=== PATIENT | female | born 1965 | race Caucasian/White ===

== ENCOUNTER 2019-09-08 07:31 | Day surgery (SDC) | payer BC ==
[~2019-09-08 07:31] MED LIST: LACTATED RINGERS 1000 ML IV PRN; PROPOFOL INJ 200 MG/20 ML VIAL IV ONE
--- NOTE | 2019-09-08 09:12 | Operative Report ---
Operative Report DATE OF SURGERY: 09/08/19 Operative Report: The risks benefits and alternatives of the procedure explained to the patient in detail and informed consent is obtained.A GIF Olympus video scope was inserted into the patient's mouth and hypopharynx ,the esophagus is identified intubated and insufflated, the scope was then advanced through the esophagus stomach and duodenum, retroflexion maneuver is done ,the esophagus stomach and first and second portions of the duodenum examined PREOPERATIVE DIAGNOSIS: Abdominal pain POSTOPERATIVE DIAGNOSIS: Gastric erosions status post biopsy, mild duodenitis OPERATION: EGD with biopsy SURGEON: RACHEL KRUEGER ANESTHESIA: LMAC TISSUE REMOVED OR ALTERED: As noted above. COMPLICATIONS: None. ESTIMATED BLOOD LOSS: None. INTRAOPERATIVE FINDINGS: As noted above. PROCEDURE: Patient tolerated the procedure well. No immediate postprocedure complications are noted. Patient is discharged in good condition. Discharge date 09/08/2019. Discharge diet: Regular. Discharge activity: Regular. 2 to 3-week follow-up to discuss findings. Patient is instructed to call the office or proceed to the emergency room should there be any further problems or questions. Wait on the pathology.
[2019-09-08 10:32] VITALS: BP 131/83
== END 2019-09-08 09:30 | disposition home or self-care (01) ==
LOC: OROUT 07:31
PROVIDERS: ATTEND Internal Medicine Gastroenterology
DX: K29.80 Duodenitis without bleeding (principal); K29.50 Unspecified chronic gastritis without bleeding; Z03.818 Encounter for observation for suspected exposure to other biological agents ruled out; Z79.899 Other long term (current) drug therapy
CPT/HCPCS: 43239; 87635; 88305 ×2; J2704; 731

== ENCOUNTER → 2020-03-22 | Outpatient (CLI) | payer BC ==
--- NOTE | 2020-03-22 12:32 | RADIOLOGY REPORT (SQ) ---
EXAM DESCRIPTION: NM GASTRIC EMPTYING STUDY IMAGES COMPLETED DATE/TIME: 03/22/2020 11:45 am REASON FOR STUDY: EPIGASTRIC PAIN R10.13 EPIGASTRIC PAIN COMPARISON: None. RADIONUCLIDE AND DOSE: 2 millicuries Tc-99m Sulfur Colloid. Egg salad sandwich The route of agent administration: Oral. TECHNIQUE: 1 minute serial static imaging performed at time of meal, 1 hour, 2 hours, 3 hours, and 4 hours as needed. Once stomach reaches 90% emptying, the test is complete. Image intensity values pl otted with respect to time with linear regression algorithm. LIMITATIONS: None. FINDINGS: Patient was observed for 4 hours. Immediate post meal serves as baseline. Gastric emptying at 30 minutes was 38.1%. Gastric emptying at 60 minutes was 59.7% Gastric emptying at 90 minutes was 73.5%. Gastric emptying at 120 minutes was 82.5%. Gastric emptying at 240 minutes was 96.6%. Normal values: 60 minutes: 30-90% retained. If less than 30%, abnormally rapid emptying. If greater than 90%, delaye d gastric emptying. 120 minutes: <60% retained. If greater than 60%, delayed gastric emptying. 240 minutes: <10% retained. If greater than 10%, delayed gastric emptying. IMPRESSION: NORMAL GASTRIC EMPTYING. TECHNICAL DOCUMENTATION: JOB ID: [id number] 2010 [employer]- All Rights Reserved rev-08/30 Reading location - IP/workstation name: [email or web address]
== END ==
LOC: RAD 07:13
PROVIDERS: ATTEND Internal Medicine Gastroenterology
DX: R10.13 Epigastric pain (principal)
CPT/HCPCS: 78264; A9541

== ENCOUNTER 2020-04-21 15:53 | Observation (INO) | payer BC ==
--- NOTE | 2020-04-21 18:15 | ER Document Report ---
ED Medical Screen (RME) - General Chief Complaint: Vomiting Stated Complaint: VOMITING, NAUSEA Time Seen by Provider: 04/21/20 18:08 Primary Care Provider: RACHEL KRUEGER MD [Primary Care Provider] - Follow up as needed Mode of Arrival: Ambulatory Information source: Patient - HPI Patient complains to provider of: Abdominal pain, nausea vomiting Notes: 04/21/20 18:14 Patient with complaints of some upper abdominal pain with nausea vomiting. She states this is been going on for several weeks. She is actually seen GI and had a gastric emptying study done approximately a month ago which was normal. She states that this morning she was having some severe epigastric pain and vomiting. She denies any pain currently. She states that she did vomit once out in triage. No dysuria or hematuria. No diarrhea. Exam: No distress, nontoxic appearing. Lungs clear and equal throughout. Heart sounds normal. No focal abdominal tenderness on limited triage abdominal exam. An initial examination was made on the patient as part of the triage process, and it was determined a more comprehensive evaluation was necessary. Initial orders were placed and patient was transferred to another provider in the ED who assumed care and finished evaluation and plan. - Related Data Allergies/Adverse Reactions: No Known Allergies Allergy (Verified 04/21/20 18:03) Home Medications: WELLBUTRIN. GERD. LYZINE Past Medical History - Social History Chew tobacco use (# tins/day): No Frequency of alcohol use: None Drug Abuse: None - Past Medical History Cardiac Medical History: Denies: Hx Coronary Artery Disease, Hx Heart Attack, Hx Hypertension Pulmonary Medical History: Reports: Hx Asthma - as child-not current Denies: Hx Bronchitis, Hx COPD, Hx Pneumonia Neurological Medical History: Denies: Hx Cerebrovascular Accident, Hx Seizures Musculoskeltal Medical History: Denies Hx Arthritis - Immunizations Hx Diphtheria, Pertussis, Tetanus Vaccination: Yes Physical Exam - Vital signs Vitals: Temp Pulse Resp BP Pulse Ox 98.8 F 66 17 183/85 H 97 04/21/20 16:24 04/21/20 16:24 04/21/20 16:24 04/21/20 16:24 04/21/20 16:24 Course - Vital Signs Vital signs: Temp Pulse Resp BP Pulse Ox 98.8 F 66 17 183/85 H 97 04/21/20 18:03 04/21/20 16:24 04/21/20 16:24 04/21/20 16:24 04/21/20 16:24 Doctor's Discharge - Discharge Referrals: RACHEL KRUEGER MD [Primary Care Provider] - Follow up as needed
[2020-04-21 19:02] LABS: ABSOLUTE LYMPHOCYTES (AUTO) 0.9 10^3/uL (0.5-4.7); ABSOLUTE MONOCYTES (AUTO) 0.4 10^3/uL (0.1-1.4); ABSOLUTE NEUT (AUTO) 15.4 10^3/uL (1.7-8.2); BASOPHILS % (AUTO) 0.2 % (0-2); HEMATOCRIT 47.7 % (36.0-47.0); HEMOGLOBIN 16.5 g/dL (12.0-15.5); LYMPHOCYTES % (AUTO) 5.4 % (13-45); MEAN CORPUSCULAR HEMOGLOBIN 30.7 pg (27.0-33.4); MEAN CORPUSCULAR HGB CONC 34.6 g/dL (32.0-36.0); MEAN CORPUSCULAR VOLUME 89 fl (80-97); MONOCYTES % (AUTO) 2.4 % (3-13); PLATELET COUNT 502 10^3/uL (150-450); RED BLOOD COUNT 5.37 10^6/uL (3.72-5.28); RED CELL DISTRIBUTION WIDTH 13.5 % (11.5-14.0); TOTAL CELLS COUNTED % (AUTO) 100 %; WHITE BLOOD COUNT 16.7 10^3/uL (4.0-10.5)
[2020-04-21 19:13] LABS: ALBUMIN 5.3 g/dL (3.5-5.0); ALKALINE PHOSPHATASE 108 U/L (38-126); ANION GAP 9 (5-19); ASPARTATE AMINO TRANSFERASE 37 U/L (14-36); BILIRUBIN,DIRECT 0.3 mg/dL (0.0-0.4); BILIRUBIN,TOTAL 1.1 mg/dL (0.2-1.3); BLOOD UREA NITROGEN 19 mg/dL (7-20); CARBON DIOXIDE 30 mmol/L (22-30); CHLORIDE 101 mmol/L (98-107); GLUCOSE 130 mg/dL (75-110); POTASSIUM 4.4 mmol/L (3.6-5.0); TOTAL PROTEIN 8.1 g/dL (6.3-8.2)
[2020-04-21 19:16] LABS: APPEARANCE,URINE SLIGHTLY-CLOUDY; BILIRUBIN,URINE NEGATIVE (NEGATIVE); COLOR,URINE YELLOW; GLUCOSE, URINE NEGATIVE (NEGATIVE); KETONES,URINE 20 mg/dL (NEGATIVE); LEUKOCYTE ESTERASE,URINE MODERATE (NEGATIVE); NITRITE,URINE NEGATIVE (NEGATIVE); PROTEIN,URINE 100 mg/dL (NEGATIVE); URINE SPECIFIC GRAVITY 1.028; UROBILINOGEN,URINE NEGATIVE mg/dL (<2.0)
--- NOTE | 2020-04-21 20:00 | RADIOLOGY REPORT (SQ) ---
EXAM DESCRIPTION: U/S ABDOMEN LIMITED W/O DOP IMAGES COMPLETED DATE/TIME: 04/21/2020 7:48 pm REASON FOR STUDY: RUQ pain COMPARISON: None. TECHNIQUE: Dynamic and static grayscale images acquired of the abdomen and recorded on PACS. Additio nal selected color Doppler and spectral images recorded. LIMITATIONS: None. FINDINGS: PANCREAS: No masses. Visualized pancreatic duct normal caliber. LIVER: No masses. Echotexture normal. LIVER VASCULATURE: Normal directional flow of the main portal vein and hepatic veins. GALLBLADDER: No stones. Normal wall thickness. No pericholecystic fluid. ULTRASOUND-DETECTED ORTEGA'S SIGN: Negative. INTRAHEPATIC DUCTS AND COMMON DUCT: CBD and intrahepatic ducts normal caliber. No filling defects. AORTA: No aneurysm. RIGHT KIDNEY: Normal size, 9.5 cm. Normal echogenicity. No solid or suspicious masses. No hydronephr osis. No calcifications. PERITONEAL AND RIGHT PLEURAL SPACE: No ascites or effusions. OTHER: No other significant findings. IMPRESSION: NORMAL RIGHT UPPER QUADRANT ULTRASOUND. TECHNICAL DOCUMENTATION: JOB ID: [id number] 2010 [employer]- All Rights Reserved Reading location - IP/workstation name: [email or web address]
--- NOTE | 2020-04-22 01:44 | RADIOLOGY REPORT (SQ) ---
EXAM DESCRIPTION: CT ABDOMEN PELVIS WITH IV CONTRAST COMPLETED DATE/TME: 04/22/2020 01:20 CLINICAL HISTORY: EPIGASTRIC pain. CREAT 0.82 COMPARISON: 04/21/2020 TECHNIQUE: CT of the abdomen and pelvis performed following IV administration of 83 mL Omnipaque 350. FINDINGS: Lung Bases: The visualized lung bases are clear. Bones: Degenerative endplate spondylosis of the spine. Chronic compression deformity of L1. Abdomen: Liver: The liver has normal size and density. No intrahepatic biliary dilatation. Gallbladder: Wall thickening of the gallbladder. No calcified gallstones identified. Spleen, Pancreas, and Adrenal Glands: The spleen, pancreas, and adrenal glands are unremarkable. Kidneys: No hydronephrosis or obstructing calculus. Vasculature: Aortoiliac atherosclerosis. IVC is unremarkable. The portal vein is patent. The proximal visceral and renal arteries are patent. Stomach: The stomach and duodenum have normal course. Other: No free intraperitoneal air. No free fluid or lymphadenopathy. Tiny fat-containing umbilical hernia. Pelvis: Bladder: Urinary bladder is unremarkable. Bowel: No dilated loops of large or small bowel. Scattered diverticula of the colon. Appendix: Normal appendix. Pelvis: Uterus is not enlarged. IMPRESSION: 1. Wall thickening of the gallbladder. Findings concerning for acute cholecystitis. 2. Diverticulosis without evidence of acute diverticulitis. This exam was performed according to our departmental dose-optimization program, which includes automated exposure control, adjustment of the mA and/or kV according to patient size and/or use of iterative reconstruction technique.
[2020-04-22] MEDS ORDERED: NORMAL SALINE 1000 ML 1,000 ML IV ONE (02:52)
[2020-04-22] MEDS ORDERED: ONDANSETRON HCL INJ/PF 4 MG/2 ML SDV IV ONE (02:52)
[2020-04-22] MEDS ORDERED: PIPERACILLIN/TAZOBACTAM 3.375 GM VIAL IV ONE (02:53)
--- NOTE | 2020-04-22 02:56 | ER Document Report ---
ED GI/ - General Chief Complaint: Vomiting Stated Complaint: VOMITING, NAUSEA Time Seen by Provider: 04/21/20 18:08 Mode of Arrival: Ambulatory - [facility] Notes: 04/22/20 02:53 Patient is a 55-year-old female who presents with abdominal pain and vomiting. Patient states she has had these episodes for several months. She states that she begins to have vomiting and has epigastric pain. This most recent episode started yesterday morning and lasted throughout the day. She states she vomited probably about 10 times. It was initially food and then it was just liquid. She has pain in her epigastric area. Patient has seen GI for this. They did a scope and said she had acid reflux and put her on medication for that. Patient has had 2 sections in the past. No other abdominal surgeries. She does note that before she started having the symptoms this time, she had eaten wings and dessert from a local restaurant. - Related Data Allergies/Adverse Reactions: No Known Allergies Allergy (Verified 04/21/20 18:03) Home Medications: WELLBUTRIN. GERD. LYZINE Past Medical History - General Information source: Patient - Social History Smoking Status: Former Smoker Chew tobacco use (# tins/day): No Frequency of alcohol use: None Drug Abuse: None Family History: Reviewed & Not Pertinent Patient has homicidal ideation: No - Past Medical History Cardiac Medical History: Denies: Hx Coronary Artery Disease, Hx Heart Attack, Hx Hypertension Pulmonary Medical History: Reports: Hx Asthma - as child-not current Denies: Hx Bronchitis, Hx COPD, Hx Pneumonia Neurological Medical History: Denies: Hx Cerebrovascular Accident, Hx Seizures Musculoskeletal Medical History: Denies Hx Arthritis - Immunizations Hx Diphtheria, Pertussis, Tetanus Vaccination: Yes Review of Systems - Review of Systems Notes: CONSTITUTIONAL: No fever, fatigue or weight loss. SKIN: No rash. HENT: No congestion, ear pain, or sore throat. CARDIOVASCULAR: No chest pain or edema. RESPIRATORY: No cough, shortness of breath, congestion, or wheezing. GASTROINTESTINAL: Positive for epigastric pain, nausea, vomiting. MUSCULOSKELETAL: No joint pain or swelling. NEUROLOGIC: No seizures. No headache, focal weakness or sensory changes. HEMATOLOGIC: No unusual bruising or bleeding. PSYCHIATRIC: No depression or anxiety. Physical Exam - Vital signs Vitals: Temp Pulse Resp BP Pulse Ox 98.8 F 66 17 183/85 H 97 01/07/21 16:24 04/21/20 16:24 04/21/20 16:24 04/21/20 16:24 04/21/20 16:24 - General General appearance: Appears well In distress: None Notes: VITAL SIGNS: Within normal limits. GENERAL: No acute distress, non-toxic appearance. HEAD: Normal with no signs of head trauma. EYES: Conjunctiva normal, no discharge. EARS: Hearing grossly intact. NECK: Normal range of motion, no tenderness, supple, no lymphadenopathy, No adenopathy, no JVD. CHEST: Clear breath sounds bilaterally. No wheezes, rales, or rhonchi. CARDIAC: Regular rate and rhythm. S1 and S2, without murmurs, gallops, or rubs. VASCULAR: No Edema. ABDOMEN: Abdomen is soft, discomfort to epigastric and right upper quadrant palpation. GASTROINTESTINAL: Bowel sounds normal MUSCULOSKELETAL: Good range of motion of all major joints. Extremities without clubbing, cyanosis or edema. NEUROLOGICAL: Alert and oriented x 3. No focal sensory or strength deficits. Speech normal. Follows commands appropriately. PSYCHIATRIC: Normal Affect, judgement and mood. SKIN: Normal appearance with no rashes or lesions. Course - Re-evaluation Re-evalutation: 04/22/20 02:59 Patient's abdominal ultrasound is unremarkable however, her CAT scan does show gallbladder wall thickening concerning for cholecystitis. I have given her fluids, Zofran, Zosyn. I discussed with Dr. Barrett from surgery who will come evaluate the patient. Patient will be admitted to surgery for cholecystitis. 04/22/20 07:06 - Vital Signs Vital signs: Temp Pulse Resp BP Pulse Ox 98.4 F 74 17 136/80 H 99 04/22/20 06:48 04/22/20 06:48 04/22/20 06:48 04/22/20 06:48 04/22/20 06:48 - Laboratory Results Result Diagrams: 04/21/20 18:29 04/21/20 18:29 Laboratory Results Interpreted: 04/21/20 04/21/20 04/21/20 18:29 18:29 18:44 WBC 16.7 H RBC 5.37 H Hgb 16.5 H Hct 47.7 H Plt Count 502 H Lymph % (Auto) 5.4 L [place] % (Auto) 2.4 L Absolute Neuts (auto) 15.4 H Seg Neutrophils % 92.0 H Glucose 130 H Calcium 11.0 H AST 37 H ALT 56 H Albumin 5.3 H Urine Protein 100 H Urine Ketones 20 H Ur Leukocyte Esterase MODERATE H Urine Ascorbic Acid 20 H Critical Laboratory Results Reviewed: No Critical Results - Radiology Results Critical Radiology Results Reviewed: No Critical Results Discharge - Discharge Clinical Impression: Cholecystitis Nausea and vomiting Qualifiers: Vomiting type: unspecified Vomiting Intractability: non-intractable Qualified Code(s): R11.2 - Nausea with vomiting, unspecified Condition: Stable Disposition: ADMITTED INPATIENT Admitting Provider: Surgicalist
[2020-04-22] MEDS ORDERED: ONDANSETRON HCL INJ/PF 4 MG/2 ML SDV IV PRN (03:23)
[2020-04-22] MEDS ORDERED: MORPHINE SULFATE 10 MG/ML INJ IV PRN ×2 (03:23→16:06)
[2020-04-22] MEDS ORDERED: NORMAL SALINE 1000 ML 1,000 ML IV PRN ×2 (03:23)
--- NOTE | 2020-04-22 03:23 | PDOC H&P ---
History of Present Illness Admission Date/PCP: WALLY DHALIWAL PA-C Patient complains of: Epigastric pain with intense nausea vomiting History of Present Illness: KATHLEEN BORDEN is a 55 year old female, healthy, with a month history of pain and intense nausea vomiting. She presented to the hospital with above symptoms and she underwent a CT scan abdomen pelvis significant for acute cholecystitis. However, an ultrasound of right upper quadrant was done revealed a normal- appearing gallbladder without stones and normal size common bile duct. Her white blood cell count elevated (16.7), her liver profile demonstrates a normal bilirubin with elevated AST ALT. Past Medical History Cardiac Medical History: Denies: Coronary Artery Disease, Myocardial Infarction, Hypertension Pulmonary Medical History: Reports: Asthma - as child-not current Denies: Bronchitis, Chronic Obstructive Pulmonary Disease (COPD), Pneumonia Neurological Medical History: Denies: Seizures Musculoskeltal Medical History: Denies: Arthritis Hematology: Denies: Anemia Social History Smoking Status: Former Smoker Electronic Cigarette use?: No Family History Family History: Reviewed & Not Pertinent Parental Family History Reviewed: No Children Family History Reviewed: No Sibling(s) Family History Reviewed.: No Medication/Allergy Home Medications: Bupropion HCl [Wellbutrin 100 mg Tablet] 150 mg PO BID 09/03/19 Esomeprazole Magnesium [Nexium] 40 mg PO ASDIR PRN 09/03/19 Lysine 500 mg PO ASDIR PRN 09/03/19 [place]-3/Dha/Epa/Fish Oil [Fish Oil 500 mg Softgel] 1 each PO ASDIR PRN 09/03/19 Allergies/Adverse Reactions: No Known Allergies Allergy (Verified 04/21/20 18:03) Physical Exam Vital Signs: Temp Pulse Resp BP Pulse Ox 98.5 F 84 19 142/79 H 99 04/21/20 23:35 04/21/20 23:35 04/21/20 23:35 04/21/20 23:35 04/21/20 23:35 Intake & Output 04/20/20 04/21/20 04/22/20 06:59 06:59 06:59 Weight 73.7 kg General appearance: PRESENT: no acute distress, thin Head exam: PRESENT: atraumatic, normocephalic Eye exam: PRESENT: EOMI Mouth exam: PRESENT: dry mucosa, neck supple Neck exam: PRESENT: full ROM Respiratory exam: PRESENT: clear to auscultation reynaldo Cardiovascular exam: PRESENT: RRR GI/Abdominal exam: PRESENT: normal bowel sounds, soft, tenderness - In the epigastrium and right upper quadrant with grimacing Rectal exam: PRESENT: deferred Extremities exam: PRESENT: full ROM Musculoskeletal exam: PRESENT: full ROM Neurological exam: PRESENT: alert, awake, oriented to time, CN II-XII grossly intact Skin exam: PRESENT: warm Results Laboratory Results: 04/21/20 18:29 04/21/20 18:29 04/21/20 04/21/20 04/21/20 18:29 18:29 18:44 WBC 16.7 H RBC 5.37 H Hgb 16.5 H Hct 47.7 H MCV 89 MCH 30.7 MCHC 34.6 RDW 13.5 Plt Count 502 H Seg Neutrophils % 92.0 H Sodium 140.2 Potassium 4.4 Chloride 101 Carbon Dioxide 30 Anion Gap 9 BUN 19 Creatinine 0.82 Est GFR ( Amer) > 60 Glucose 130 H Calcium 11.0 H Total Bilirubin 1.1 AST 37 H Alkaline Phosphatase 108 Total Protein 8.1 Albumin 5.3 H Lipase 195.4 Urine Color YELLOW Urine Appearance SLIGHTLY-CLOUDY Urine pH 6.0 Ur Specific [place] 1.028 Urine Protein 100 H Urine Glucose (UA) NEGATIVE Urine Ketones 20 H Urine Blood NEGATIVE Urine Nitrite NEGATIVE Ur Leukocyte Esterase MODERATE H Urine WBC (Auto) 9 Urine RBC (Auto) 10 Impressions: Abdomen Ultrasound 04/21/20 18:13 IMPRESSION: NORMAL RIGHT UPPER QUADRANT ULTRASOUND. Abdomen/Pelvis CT 04/21/20 22:39 IMPRESSION: 1. Wall thickening of the gallbladder. Findings concerning for acute cholecystitis. 2. Diverticulosis without evidence of acute diverticulitis. This exam was performed according to our departmental dose-optimization program, which includes automated exposure control, adjustment of the mA and/or kV according to patient size and/or use of iterative reconstruction technique. Assessment & Plan - Diagnosis (1) Acute acalculous cholecystitis Is this a current diagnosis for this admission?: Yes - Time Anticipated Discharge Disposition: Home, Self Care Anticipated Discharge Timeframe: within 48 hours - Plan Summary Plan Summary: Assessment: Several month history of epigastric pain, intense nausea vomiting Physical exam significant for epigastric and right upper quadrant pain CT scan abdomen pelvis significant for acute cholecystitis Ultrasound of the gallbladder is negative for pathology with normal size common bile duct Leukocytosis 16.7 Liver profile demonstrates slight elevation AST ALT with normal total bilirubin Plan: Admit patient Keep n.p.o. IV fluids Zosyn 3.375 g IV piggyback every 6 Laparoscopic cystectomy, possible open, possible cholangiogram tomorrow morning
[2020-04-22] MEDS: FAMOTIDINE INJ/PF 20 MG/2 ML SDV IV SCH ×2 (04:00→10:13)
[2020-04-22] MEDS: PIPERACILLIN/TAZOBACTAM 3.375 GM VIAL IV SCH ×2 (06:43→13:37)
[2020-04-22] MEDS ORDERED: DEXAMETHASONE SOD PHOSPHATE INJ 4 MG/1 ML VIAL ONE (09:12)
[2020-04-22] MEDS ORDERED: KETOROLAC TROMETHAMINE 60 MG/2 ML SDV ONE (09:12)
[2020-04-22] MEDS ORDERED: NEOSTIGMINE METHYLSULFATE 10 MG/10 ML VIAL ONE (09:12)
[2020-04-22] MEDS ORDERED: GLYCOPYRROLATE 1 MG/5 ML VIAL ONE (09:12)
[2020-04-22] MEDS ORDERED: ONDANSETRON HCL INJ/PF 4 MG/2 ML SDV ONE (09:12)
[2020-04-22] MEDS ORDERED: BUPIVACAINE INJ/PF LIPOSOME/PF 266 MG/20 ML SDV ONE (13:44)
[2020-04-22] MEDS ORDERED: MIDAZOLAM 2 MG/2 ML INJ ONE (13:51)
[2020-04-22] MEDS ORDERED: FENTANYL CITRATE INJ/PF 100 MCG/2 ML AMPUL ONE (13:51)
[2020-04-22] MEDS ORDERED: PROPOFOL INJ 200 MG/20 ML VIAL IV ONE (13:52)
[2020-04-22] MEDS ORDERED: EPHEDRINE SULFATE INJ 50 MG/1 ML AMPULE ONE (13:52)
[2020-04-22] MEDS ORDERED: SUGAMMADEX SODIUM 200 MG/2 ML SDV IV ONE (13:52)
[2020-04-22] MEDS ORDERED: PIPERACILLIN SODIUM/TAZOBACTAM 3.375 GM in NORMAL SALINE 100 ML IV SCH (14:00)
[2020-04-22] MEDS ORDERED: CEFAZOLIN INJ 1 GM VIAL ONE (15:14)
[2020-04-22] MEDS ORDERED: DIPHENHYDRAMINE HCL 50 MG/ML VIAL IV PRN (16:06)
[2020-04-22] MEDS ORDERED: FENTANYL CITRATE INJ/PF 100 MCG/2 ML AMPUL IV PRN ×3 (16:06)
[2020-04-22] MEDS ORDERED: PROMETHAZINE HCL INJ 25 MG/1 ML VIAL IV PRN ×2 (16:06)
[2020-04-22] MEDS ORDERED: OXYCODONE-ACETAMINOPHEN 5-325 MG TABLET PO PRN ×2 (16:06)
[2020-04-22] MEDS ORDERED: MEPERIDINE HCL/PF INJ 25 MG/1 ML DISP.SYRIN IV PRN (16:06)
--- NOTE | 2020-04-22 16:22 | Operative Report ---
Nonrecallable Operative Report DATE OF SURGERY: 04/22/20 PREOPERATIVE DIAGNOSIS: Cholecystitis POSTOPERATIVE DIAGNOSIS: Same OPERATION: Laparoscopic cholecystectomy SURGEON: DANNY PHIPPS ANESTHESIA: GA - TISSUE REMOVED OR ALTERED: Gallbladder COMPLICATIONS: None ESTIMATED BLOOD LOSS: 25 cc INTRAOPERATIVE FINDINGS: See note PROCEDURE: After obtaining informed consent, the patient was taken to the operating room. General Anesthesia was induced; the arms were extended, and the abdomen was exposed, and prepped and draped in a sterile fashion. Instrumentation was set up for laparoscopic cholecystectomy. Surgical plan and surgical timeout were conducted. A vertical incision was made above the umbilicus, and a verres needle was inserted uneventfully into the peritoneal cavity. Pneumoperitoneum was established. The verres needle was removed and a 10 mm trocar was inserted and a 10 mm laparoscope was inserted. Visualization of the peritoneal cavity confirmed safe uneventful entry. Under direct visualization 3 additional 5 mm ports were established, one in the subxiphoid position and second in the subcostal position. Visualization of the hepatobiliary anatomy revealed no anatomic variations. A grasper was placed on the fundus of the gallbladder and the gallbladder is elevated over the right surface of the liver; a second grasper was used to grasp the infundibulum of the gallbladder. The neck of the gallbladder and junction with the cystic duct was dissected out. The Cystic artery was in its usual location medial and cephalad to the cystic duct. The cystic artery was surrounded with a right angle clamp, clipped twice proximally and divided with laparoscopic scissors. We now opened the triangle of [place] by dividing the peritoneal reflection on both the medial and lateral sides of the cystic duct infundibular junction. The critical view was obtained. We now milked the cystic duct of any possible stones, clipped the cystic duct approximately 2 times once distally and divided with scissors. The gallbladder was now removed from the undersurface of the liver using hook cautery dissection. Graspers were repositioned and the gallbladder was removed uneventfully from the abdominal cavity through the super umbilical port site incision. The specimen was examined, then passed off to pathology for permanent analysis. We returned to the peritoneal cavity check for bleeding, and evidence of bile leak, and there was none. We Confirmed satisfactory placement of clips on cystic duct and cystic artery were secured . At this point we felt the operation was complete. The subcutaneous tissue was then anesthetized with quarter percent Marcaine Sponge and needle counts are correct. All ports removed under direct visualization pneumoperitoneum evacuated, and 5 mm port wounds closed with 3-0 Vicryl suture, benzoin and Steri-Strips. The patient was extubated, and taken to the recovery room in stable condition. Estimated blood loss 25 cc
--- NOTE | 2020-04-22 16:27 | PDOC DISCHARGE SUMMARY ---
General - Admit/Disc Date/PCP Admission Date/Primary Care Provider: 04/22/20 03:46 WALLY DHALIWAL PA-C Discharge Date: 04/22/20 - Discharge Diagnosis Final Diagnosis: Acute cholecystitis - Assessment Summary: Patient was admitted with a diagnosis acute colic cholecystitis. CT scan confirmed thickened gallbladder wall. She was taken to the operating on the day of admission for laparoscopic cholecystectomy at which time an edematous gallbladder was removed. Postoperatively she had a routine benign postop course she started tolerating clear liquid diet on the hospital day 1 the day of surgery she was ready for discharge home. She will be given a prescription for some pain medication upon discharge and an appointment to follow-up in surgical clinic in 7 to 10 days. She is told to advance her diet slowly over the course the next 12 to 24 hours at home and to avoid doing any heavy lifting of anything greater than 10 pounds for the next 2 to 3 weeks. - Additional Information Resuscitation Status: Full Code Referrals: WALLY DHALIWAL PA-C [Primary Care Provider] - 04/27/20 12:00 pm DANNY PHIPPS MD [ACTIVE STAFF] - 05/11/20 9:15 am RACHEL KRUEGER MD [ACTIVE STAFF] - 05/02/20 2:30 pm Home Medications: Bupropion HCl [Bupropion HCl Sr] 150 mg PO BID 04/22/20 Rabeprazole Sodium [Aciphex] 20 mg PO DAILY 04/22/20 History of Present Illiness History of Present Illness: KATHLEEN BORDEN is a 55 year old female Physical Exam Vital Signs: Temp Pulse Resp BP Pulse Ox 98.6 F 66 12 144/81 H 99 04/22/20 13:42 04/22/20 13:42 04/22/20 13:42 04/22/20 11:25 04/22/20 13:42 Intake & Output 04/21/20 04/22/20 04/23/20 06:59 06:59 06:59 Intake Total 1999 Balance 1999 Weight 73.8 kg Results Laboratory Results: WBC 16.7 10^3/uL (4.0-10.5) H 04/21/20 18:29 RBC 5.37 10^6/uL (3.72-5.28) H 04/21/20 18:29 Hgb 16.5 g/dL (12.0-15.5) H 04/21/20 18: Hct 47.7 % (36.0-47.0) H 04/21/20 18: MCV 89 fl (80-97) 04/21/20 18: MCH 30.7 pg (27.0-33.4) 04/21/20 18: MCHC 34.6 g/dL (32.0-36.0) 04/21/20 18: RDW 13.5 % (11.5-14.0) 04/21/20 18: Plt Count 502 10^3/uL (150-450) H 04/21/20 18: Lymph % (Auto) 5.4 % (13-45) L 04/21/20 18: Ashley % (Auto) 2.4 % (3-13) L 04/21/20 18: Eos % (Auto) 0.0 % (0-6) 04/21/20: Baso % (Auto) 0.2 % (0-2) 04/21/20 18: Absolute Neuts (auto) 15.4 10^3/uL (1.7-8.2) H 04/21/20 18: Absolute Lymphs (auto) 0.9 10^3/uL (0.5-4.7) 04/21/20 18: Absolute Monos (auto) 0.4 10^3/uL (0.1-1.4) 04/21/20 18: Absolute Eos (auto) 0.0 10^3/uL (0.0-0.6) 04/21/20 18: Absolute Basos (auto) 0.0 10^3/uL (0.0-0.2) 04/21/20 18: Seg Neutrophils % 92.0 % (42-78) H 04/21/20 18: Sodium 140.2 mmol/L (137-145) 04/21/20 18: Potassium 4.4 mmol/L (3.6-5.0) 04/21/20 18: Chloride 101 mmol/L (98-107) 04/21/20 18: Carbon Dioxide 30 mmol/L (22-30) 04/21/20 18:29 Anion Gap 9 (5-19) 04/21/20 18:29 BUN 19 mg/dL (7-20) 04/21/20 18:29 Creatinine 0.82 mg/dL (0.52-1.25) 04/21/20 18:29 Est GFR ( Amer) > 60 (>60) 04/21/20 18:29 Est GFR (MDRD) Non-Af > 60 (>60) 04/21/20 18:29 Glucose 130 mg/dL (75-110) H 04/21/20 18:29 Calcium 11.0 mg/dL (8.4-10.2) H 04/21/20 18:29 Total Bilirubin 1.1 mg/dL (0.2-1.3) 04/21/20 18:29 Direct Bilirubin 0.3 mg/dL (0.0-0.4) 04/21/20 18:29 Neonat Total Bilirubin Not Reportable 04/21/20 18:29 Neonat Direct Bilirubin Not Reportable 04/21/20 18:29 Neonat Indirect Bili Not Reportable 04/21/20 18:29 AST 37 U/L (14-36) H 04/21/20 18:29 ALT 56 U/L (<35) H 04/21/20 18:29 Alkaline Phosphatase 108 U/L (38-126) 04/21/20 18:29 Total Protein 8.1 g/dL (6.3-8.2) 04/21/20 18:29 Albumin 5.3 g/dL (3.5-5.0) H 04/21/20 18:29 Lipase 195.4 U/L (23-300) 04/21/20 18:29 Urine Color YELLOW 04/21/20 18:44 Urine Appearance SLIGHTLY-CLOUDY 04/21/20 18:44 Urine pH 6.0 (5.0-9.0) 04/21/20 18:44 Ur Specific [place] 1.028 04/21/20 18:44 Urine Protein 100 mg/dL (NEGATIVE) H 04/21/20 18:44 Urine Glucose (UA) NEGATIVE mg/dL (NEGATIVE) 04/21/20 18:44 Urine Ketones 20 mg/dL (NEGATIVE) H 04/21/20 18:44 Urine Blood NEGATIVE (NEGATIVE) 04/21/20 18:44 Urine Nitrite NEGATIVE (NEGATIVE) 04/21/20 18:44 Urine Bilirubin NEGATIVE (NEGATIVE) 04/21/20 18:44 Urine Urobilinogen NEGATIVE mg/dL (<2.0) 04/21/20 18:44 Ur Leukocyte Esterase MODERATE (NEGATIVE) H 04/21/20 18:44 Urine WBC (Auto) 9 /HPF 04/21/20 18:44 Urine RBC (Auto) 10 /HPF 04/21/20 18:44 Squamous Epi Cells Auto 5 /HPF 04/21/20 18:44 Urine Mucus (Auto) MOD /LPF 04/21/20 18:44 Urine Ascorbic Acid 20 (NEGATIVE) H 04/21/20 18:44 Influenza A (RT-PCR) NEGATIVE (NEGATIVE) 04/22/20 04:15 Influenza B (RT-PCR) NEGATIVE (NEGATIVE) 04/22/20 04:15 RSV (RT-PCR) NEGATIVE (NEGATIVE) 04/22/20 04:15 SARS-CoV-2 Rap RNA(RT-PCR) NEGATIVE (NEGATIVE) 04/22/20 04:15 Impressions: Abdomen Ultrasound 04/21/20 18:13 IMPRESSION: NORMAL RIGHT UPPER QUADRANT ULTRASOUND. Abdomen/Pelvis CT 04/21/20 22:39 IMPRESSION: 1. Wall thickening of the gallbladder. Findings concerning for acute cholecystitis. 2. Diverticulosis without evidence of acute diverticulitis. This exam was performed according to our departmental dose-optimization program, which includes automated exposure control, adjustment of the mA and/or kV according to patient size and/or use of iterative reconstruction technique.
--- NOTE | 2020-04-22 16:34 | Discharge Summary ---
Discharge Summary (SDC) - Discharge Final Diagnosis: Cholecystitis Date of Surgery: 04/22/20 Discharge Date: 04/22/20 Condition: Good Prescriptions: Hydrocodone/Acetaminophen [[place] 10-325 mg Tablet] 1 tab PO Q6HP PRN #10 tablet PRN Reason: Referrals: WALLY DHALIWAL PA-C [Primary Care Provider] - 04/27/20 12:00 pm DANNY PHIPPS MD [ACTIVE STAFF] - 05/11/20 9:15 am RACHEL KRUEGER MD [ACTIVE STAFF] - 05/02/20 2:30 pm Discharge Diet: As Tolerated Discharge Activity: No Lifting Over 10 Pounds Home Care Assistance: None Needed Report the Following to Your Physician Immediately: Vomiting, Increase in Pain
[2020-04-22 17:03] VITALS: BP 160/80
== END 2020-04-22 18:43 | disposition home or self-care (01) ==
LOC: ER 15:53 → EH 04-22 03:46 → 4W 04-22 06:17
PROVIDERS: ATTEND Surgery
DX: K80.12 Calculus of gallbladder with acute and chronic cholecystitis without obstruction (principal); K21.9 Gastro-esophageal reflux disease without esophagitis; Z01.812 Encounter for preprocedural laboratory examination; Z20.822 Contact with and (suspected) exposure to COVID-19; Z79.899 Other long term (current) drug therapy; Z87.891 Personal history of nicotine dependence
CPT/HCPCS: 47562; 99285; 36415; 83690; 85025; 0241U ×4; 80053; 81001; 88304 ×2; 76705; 74177; 00790; G0378 ×2; J2250; J0690; J1100; J1885; J3010; J2710; J2405; J7050; J7030; J2704; S0028; J2543; C9290; J3490; C9803; 790